=== PATIENT | male | born 1950 | race Caucasian/White ===

== ENCOUNTER 2017-01-20 08:38 | Day surgery (SDC) | payer OTHER ==
[2017-01-20] MEDS ORDERED: LIDOCAINE 1% 30 ML SDV ONE (09:29)
[2017-01-20] MEDS ORDERED: LIDOCAINE 1% 30 ML SDV SC ONE (10:00)
--- NOTE | 2017-01-20 10:16 | SUROPNOTE ---
[facility] Operative Report - Surgery PROCEDURE: LINQ IMPLANT INDICATIONS: SYNCOPE PROCEDURE DETAILS: After consent was obtained, the patient was placed on the table in the usual sterile fashion. Lidocaine (1%) was used for local anesthetic after anatomic localization by palpation. A #12 blade was used for the initial incision followed by the provided blade for depth and width. The provided rail delivery system was used to place the device without difficulty, and three doni were used to close the pocket. SN: [id number] No complications were appreciated. Patient tolerated the procedure very well. Follow up with cardiology in one week.
== END 2017-01-20 11:00 | disposition home or self-care (01) ==
LOC: FCATH 08:38
PROVIDERS: ATTEND Internal Medicine Cardiovascular Disease
PROC: 0JH632Z Insertion of Monitoring Device into Chest Subcutaneous Tissue and Fascia, Percutaneous Approach (ICD-10-PCS; principal; 2017-01-20)
DX: R55 Syncope and collapse (principal)
CPT/HCPCS: C1764

== ENCOUNTER → 2017-09-22 | Outpatient (CLI) | payer OTHER | LOC: FIMAGING 11:06 | DX: M50.31 Other cervical disc degeneration, high cervical region (principal); M50.323 Other cervical disc degeneration at C6-C7 level; Z98.1 Arthrodesis status ==

== ENCOUNTER → 2017-09-23 | Outpatient (CLI) | payer OTHER | LOC: FIMAGING 13:08 | PROVIDERS: ATTEND Neurological Surgery | DX: M48.02 Spinal stenosis, cervical region (principal); M48.05 Spinal stenosis, thoracolumbar region; M46.95 Unspecified inflammatory spondylopathy, thoracolumbar region; M50.31 Other cervical disc degeneration, high cervical region; M50.33 Other cervical disc degeneration, cervicothoracic region; M51.34 Other intervertebral disc degeneration, thoracic region; M46.92 Unspecified inflammatory spondylopathy, cervical region ==

== ENCOUNTER → 2017-11-13 | Outpatient (CLI) | payer OTHER ==
--- NOTE | 2017-11-15 06:36 | CPEEG ---
[f rep st] ELECTROENCEPHALOGRAM DATE OF STUDY: 11/13/2017 DATE OF INTERPRETATION: 11/14/2017. DATE OF STUDY: 11/13/2017. INTERPRETATION: Normal EEG during wakefulness and sleep. There were no potentially epileptogenic ab normalities present during the recording. REPORT: This EEG contains 9-10 Hz alpha activity to the posterior head regions. There was no abnorm al activation at rest, during photic stimulation or hyperventilation. The patient became drowsy and fell asleep during the study. There was no abnormal activation during drowsiness, sleep, or during t imes of arousal. /[id number]/MODL
== END ==
LOC: FCPNEURO 14:56
PROVIDERS: ATTEND Psychiatry & Neurology Neurology
DX: R26.89 Other abnormalities of gait and mobility (principal)

== ENCOUNTER → 2017-12-11 | Outpatient (CLI) | payer OTHER | PROVIDERS: ATTEND Otolaryngology | DX: R13.13 Dysphagia, pharyngeal phase (principal); F45.8 Other somatoform disorders | CPT/HCPCS: 74220; 74230; 92611; G8996; G8997; G8998 ==

== ENCOUNTER → 2018-04-15 | Outpatient (CLI) | payer OTHER | LOC: BHFA 09:15 | PROVIDERS: ATTEND Internal Medicine | DX: I71.9 Aortic aneurysm of unspecified site, without rupture (principal) ==

== ENCOUNTER → 2018-09-21 | Outpatient (CLI) | payer OTHER | LOC: FIMAGING 11:46 | PROVIDERS: ATTEND Physical Medicine & Rehabilitation | DX: M21.70 Unequal limb length (acquired), unspecified site (principal) ==